=== PATIENT | female | born 1975 | race Hispanic/Latino ===

== ENCOUNTER 2021-02-15 16:05 | Outpatient (CLI) | payer BC | END 2021-02-15 16:06 | disposition home or self-care (01) | LOC: CSHULT 16:05 | PROVIDERS: ATTEND Family Medicine | DX: M79.602 Pain in left arm (principal); M79.89 Other specified soft tissue disorders; M47.812 Spondylosis without myelopathy or radiculopathy, cervical region | CPT/HCPCS: 72040 ==